=== PATIENT | male | born 1995 | race Caucasian/White ===

== ENCOUNTER 2022-02-26 17:22 | Emergency (ER) | payer OTHER ==
[~2022-02-26] VITALS: Ht 172.7 cm; Wt 56.7 kg
== END 2022-02-26 20:01 | disposition home or self-care (01) ==
LOC: ER 17:22
DX: L02.31 Cutaneous abscess of buttock (principal)

== ENCOUNTER 2025-02-15 23:20 | Emergency (ER) | payer OTHER ==
[~2025-02-15] VITALS: Ht 172.7 cm; Wt 54.4 kg
[2025-02-15] MEDS ORDERED: ACETAMINOPHEN 500 MG GEL..CAP PO ONE (23:37)
[2025-02-16] MEDS ORDERED: FAMOTIDINE/PF 20 MG/2 ML VIAL IV PUSH STA (00:28)
[2025-02-16] MEDS ORDERED: KETOROLAC TROMETHAMINE 30 MG VIAL IV STA (00:28)
[2025-02-16] MEDS ORDERED: ONDANSETRON HCL 2 MG/ML VIAL IV STA (00:30)
[2025-02-16] MEDS ORDERED: 0.9 % SODIUM CHLORIDE 1,000 ML IV ONE (00:30)
[2025-02-16] MEDS ORDERED: ONDANSETRON HCL 2 MG/ML VIAL ONE (00:40)
[2025-02-16] MEDS ORDERED: FAMOTIDINE/PF 20 MG/2 ML VIAL ONE (00:40)
[2025-02-16] MEDS ORDERED: KETOROLAC TROMETHAMINE 30 MG VIAL ONE (00:40)
[2025-02-16 01:26] LABS: BASO % 0.0 % (0.1-1.2); EOS # 0.00 (0.04-0.54); EOS % 0.0 % (0.7-7.0); LYMPH # 0.38 (1.18-3.74); LYMPH % 9.3 % (19.3-53.1); MEAN PLATELET VOLUME 8.70 fl (9.4-12.4); MONO # 0.37 (0.24-0.82); MONO % 9.0 % (4.7-12.5); NEUT # 3.33 (1.56-6.13); NEUT % 81.5 % (34.0-71.1); RED CELL DISTRIBUTION WIDTH 12.3 % (11.6-14.4)
[2025-02-16 02:02] LABS: ALT/SGPT 23.0 U/L (12-78); AST/SGOT 24.0 U/L (15-37); BILIRUBIN TOTAL 0.54 mg/dL (0.3-1.2); BUN CREA RATIO 11.0 (7.0-25.0); CREATININE SERUM 0.89 mg/dL (0.70-1.30); GFR 102.54; GLOBULINA 3.6 G/DL (2.4-3.5); GLUCOSE FASTING 109.0 mg/dL (65-100); OSMOLALITY SERUM 279.0 MOSM/KG (275-295)
[2025-02-16 02:27] LABS: COVID-19 AG NEGATIVE (NEGATIVE)
[2025-02-16 02:58] LABS: URINE APPEARANCE Clear; URINE BILIRRUBIN Negative (NEGATIVE); URINE BLOOD Negative; URINE COLOR Dark Yellow; URINE GLUCOSE Negative (NEGATIVE); URINE LEUKOCYTE Negative; URINE NITRATE Negative; URINE PROTEIN Trace (NEGATIVE); URINE UROBILINOGEN 1.0 E.U./dl
[2025-02-16 02:59] LABS: URINE BACTERIA 22.8 uL (0.0-1933); URINE EPITHELIAL CELLS 3.0 uL (0.0-38.8); URINE RBC 15.0 uL (0.0-20.8); URINE WBC 4.4 uL (0.0-23.2)
[2025-02-16 03:12] LABS: URINE CAST 0.56 uL (0.0-1.40); URINE KETONE 40 (NEGATIVE)
[2025-02-16] MEDS ORDERED: DOLOGESIC 500-1 EACH PO (05:43)
[2025-02-16] MEDS ORDERED: ZYNCOF 20-400120 ML PO (05:43)
[2025-02-16] MEDS ORDERED: PHENAGIL TABLE1 EACH PO (05:43)
== END 2025-02-16 06:08 ==
LOC: ER 23:21
PROVIDERS: General Practice
DX: J10.1 Influenza due to other identified influenza virus with other respiratory manifestations (principal); E86.0 Dehydration; R50.9 Fever, unspecified; R11.0 Nausea; R05.8 Other specified cough; Z20.822 Contact with and (suspected) exposure to COVID-19